=== PATIENT | male | born 1960 | race Caucasian/White ===

== ENCOUNTER → 2017-01-11 09:35 | Emergency (ER) | payer MEDICARE | END | disposition left against medical advice (07) | LOC: ER 09:35 | DX: Z53.21 Procedure and treatment not carried out due to patient leaving prior to being seen by health care provider (principal) ==

== ENCOUNTER 2017-01-12 09:24 | Emergency (ER) | payer MEDICARE | END 2017-01-12 10:28 | disposition home or self-care (01) | LOC: ER 09:24 | DX: M25.512 Pain in left shoulder (principal); G89.29 Other chronic pain; G47.00 Insomnia, unspecified; F31.9 Bipolar disorder, unspecified; F17.290 Nicotine dependence, other tobacco product, uncomplicated ==

== ENCOUNTER 2017-01-13 06:42 | Emergency (ER) | payer MEDICARE | END 2017-01-13 07:34 | disposition home or self-care (01) | LOC: ER 06:42 | DX: M79.1 Myalgia (principal); F31.9 Bipolar disorder, unspecified; F17.220 Nicotine dependence, chewing tobacco, uncomplicated; Z87.442 Personal history of urinary calculi ==

== ENCOUNTER 2017-01-15 06:38 | Emergency (ER) | payer MEDICARE | END 2017-01-15 07:00 | disposition home or self-care (01) | LOC: ER 06:38 | DX: G89.29 Other chronic pain (principal); R52 Pain, unspecified; F31.9 Bipolar disorder, unspecified; G40.909 Epilepsy, unspecified, not intractable, without status epilepticus; F17.210 Nicotine dependence, cigarettes, uncomplicated; Z87.442 Personal history of urinary calculi | CPT/HCPCS: J1885 ==

== ENCOUNTER 2017-01-15 11:14 | Emergency (ER) | payer MEDICARE | END 2017-01-15 15:15 | disposition home or self-care (01) | LOC: ER 11:14 | DX: Z53.21 Procedure and treatment not carried out due to patient leaving prior to being seen by health care provider (principal) ==

== ENCOUNTER → 2017-01-15 16:43 | Emergency (ER) | payer MEDICARE | END | disposition left against medical advice (07) | LOC: ER 16:43 | DX: Z53.21 Procedure and treatment not carried out due to patient leaving prior to being seen by health care provider (principal) ==

== ENCOUNTER 2017-01-16 04:10 | Emergency (ER) | payer MEDICARE, OTHER | END 2017-01-16 04:13 | disposition home or self-care (01) | LOC: ER 04:10 | DX: R52 Pain, unspecified (principal); G89.29 Other chronic pain; F31.9 Bipolar disorder, unspecified; F17.210 Nicotine dependence, cigarettes, uncomplicated; Z87.442 Personal history of urinary calculi ==

== ENCOUNTER 2017-01-27 02:25 | Emergency (ER) | payer MEDICARE | END 2017-01-27 03:50 | disposition home or self-care (01) | LOC: ER 02:25 | DX: G89.29 Other chronic pain (principal); F31.9 Bipolar disorder, unspecified; F17.220 Nicotine dependence, chewing tobacco, uncomplicated | CPT/HCPCS: 96372; J1885 ==

== ENCOUNTER 2017-01-28 23:42 | Emergency (ER) | payer MEDICARE | END 2017-01-29 00:35 | disposition home or self-care (01) | LOC: ER 23:42 | DX: M19.90 Unspecified osteoarthritis, unspecified site (principal); F31.9 Bipolar disorder, unspecified; F17.220 Nicotine dependence, chewing tobacco, uncomplicated; Z87.442 Personal history of urinary calculi | CPT/HCPCS: 96372; J1885 ==

== ENCOUNTER 2017-01-29 12:32 | Emergency (ER) | payer MEDICARE | END 2017-01-29 13:09 | disposition home or self-care (01) | LOC: ER 12:32 | DX: G89.29 Other chronic pain (principal); F31.9 Bipolar disorder, unspecified; F17.220 Nicotine dependence, chewing tobacco, uncomplicated; Z87.442 Personal history of urinary calculi ==

== ENCOUNTER 2017-01-31 06:13 | Emergency (ER) | payer MEDICARE | END 2017-01-31 06:45 | disposition home or self-care (01) | LOC: ER 06:13 | DX: M79.671 Pain in right foot (principal); M79.672 Pain in left foot; F17.220 Nicotine dependence, chewing tobacco, uncomplicated; Z87.442 Personal history of urinary calculi ==

== ENCOUNTER 2017-01-31 14:04 | Emergency (ER) | payer MEDICARE | END 2017-01-31 14:30 | disposition home or self-care (01) | LOC: ER 14:04 | DX: M25.572 Pain in left ankle and joints of left foot (principal); M25.571 Pain in right ankle and joints of right foot; F31.9 Bipolar disorder, unspecified; F17.220 Nicotine dependence, chewing tobacco, uncomplicated; Z87.442 Personal history of urinary calculi | CPT/HCPCS: 96372; J1885 ==

== ENCOUNTER 2017-02-01 10:32 | Emergency (ER) | payer MEDICARE | END 2017-02-01 11:05 | disposition home or self-care (01) | LOC: ER 10:32 | DX: M79.672 Pain in left foot (principal); M79.671 Pain in right foot; G89.29 Other chronic pain; F31.9 Bipolar disorder, unspecified; F17.220 Nicotine dependence, chewing tobacco, uncomplicated; Z87.442 Personal history of urinary calculi | CPT/HCPCS: 96372; J1885 ==

== ENCOUNTER 2017-02-03 09:56 | Emergency (ER) | payer MEDICARE | END 2017-02-03 10:18 | disposition home or self-care (01) | LOC: ER 09:56 | DX: M25.561 Pain in right knee (principal); M25.562 Pain in left knee; M25.572 Pain in left ankle and joints of left foot; M25.571 Pain in right ankle and joints of right foot; M25.519 Pain in unspecified shoulder; F17.220 Nicotine dependence, chewing tobacco, uncomplicated; Z87.442 Personal history of urinary calculi ==

== ENCOUNTER 2017-02-04 07:17 | Emergency (ER) | payer MEDICARE | END 2017-02-04 07:55 | disposition home or self-care (01) | LOC: ER 07:17 | DX: M25.572 Pain in left ankle and joints of left foot (principal); M25.571 Pain in right ankle and joints of right foot; F31.9 Bipolar disorder, unspecified; F17.220 Nicotine dependence, chewing tobacco, uncomplicated; Z87.442 Personal history of urinary calculi ==

== ENCOUNTER 2017-02-05 09:49 | Emergency (ER) | payer MEDICARE | END 2017-02-05 10:28 | disposition home or self-care (01) | LOC: ER 09:49 | DX: G89.29 Other chronic pain (principal); F31.9 Bipolar disorder, unspecified; F17.220 Nicotine dependence, chewing tobacco, uncomplicated; Z87.442 Personal history of urinary calculi | CPT/HCPCS: 96372; J1885 ==

== ENCOUNTER 2017-02-11 15:12 | Emergency (ER) | payer MEDICARE | END 2017-02-11 15:59 | disposition home or self-care (01) | LOC: ER 15:12 | DX: M25.512 Pain in left shoulder (principal); M25.572 Pain in left ankle and joints of left foot; M25.571 Pain in right ankle and joints of right foot; R30.0 Dysuria; F31.9 Bipolar disorder, unspecified; Z86.19 Personal history of other infectious and parasitic diseases; Z87.442 Personal history of urinary calculi; Z79.899 Other long term (current) drug therapy ==

== ENCOUNTER 2017-02-12 09:22 | Emergency (ER) | payer MEDICARE | END 2017-02-12 10:07 | disposition left against medical advice (07) | LOC: ER 09:22 | DX: Z53.21 Procedure and treatment not carried out due to patient leaving prior to being seen by health care provider (principal) ==

== ENCOUNTER 2017-02-13 07:47 | Emergency (ER) | payer MEDICARE | END 2017-02-13 08:09 | disposition home or self-care (01) | LOC: ER 07:47 | DX: M25.572 Pain in left ankle and joints of left foot (principal); M25.571 Pain in right ankle and joints of right foot; M25.569 Pain in unspecified knee; M25.559 Pain in unspecified hip; M25.519 Pain in unspecified shoulder; G89.29 Other chronic pain; F31.9 Bipolar disorder, unspecified; F17.220 Nicotine dependence, chewing tobacco, uncomplicated; Z87.442 Personal history of urinary calculi ==